=== PATIENT | female | born 1965 | race Caucasian/White ===

== ENCOUNTER 2019-08-30 16:05 | Outpatient (CLI) | payer OTHER, SELFPAY ==
--- NOTE | ~2019-08-30 | MM_ITS ---
EXAMINATION: MM screening [facility] BI w lissette HISTORY: Screening mammogram TECHNIQUE: Craniocaudal and mediolateral oblique 3-D tomosynthesis images were obtained and synthetic 2-D images were generated. CAD analysis was submitted and interpreted. COMPARISON: Comparison to multiple prior studies sequentially, with oldest reviewed study dated 01/25. BREAST PARENCHYMAL COMPOSITION: There are scattered areas of fibroglandular density. FINDINGS: There is no evidence of suspicious mass, calcification, or architectural distortion to sugg est malignancy in either breast. There has been no suspicious interval change. IMPRESSION: 1. No mammographic evidence of malignancy. 2. Recommend routine screening mammography in one year. BI-RADS Category 1: Negative Reviewed, dictated and finalized at location A. LING INSTRUCTOR
== END 2019-08-30 16:06 | disposition home or self-care (01) ==
LOC: ANHIMG 16:13
DX: Z12.31 Encounter for screening mammogram for malignant neoplasm of breast (principal)
CPT/HCPCS: 77063; 77067

== ENCOUNTER 2020-12-11 15:43 | Outpatient (CLI) | payer BC, SELFPAY ==
--- NOTE | ~2020-12-11 | MM_ITS ---
EXAMINATION: MM screening [facility] BI w lissette HISTORY: Screening mammogram TECHNIQUE: Craniocaudal and mediolateral oblique 3-D tomosynthesis images were obtained and synthetic 2-D images were generated. CAD analysis was submitted and interpreted. COMPARISON: August 30, 2019, 12/09/2017, 03/04/2016 bilateral digital screening mammogram examinations BREAST PARENCHYMAL COMPOSITION: There are scattered areas of fibroglandular density. FINDINGS: There is no evidence of suspicious mass, calcification, or architectural distortion to sugg est malignancy in either breast. There has been no suspicious interval change. IMPRESSION: 1. No mammographic evidence of malignancy. 2. Recommend routine screening mammography in one year. BI-RADS Category 1: Negative Reviewed, dictated and finalized at location A.
== END 2020-12-11 15:44 | disposition home or self-care (01) ==
LOC: ANHIMG 15:48
PROVIDERS: Visit Provider Obstetrics & Gynecology
DX: Z12.31 Encounter for screening mammogram for malignant neoplasm of breast (principal)
CPT/HCPCS: 77063; 77067

== ENCOUNTER 2022-01-30 08:20 | Outpatient (CLI) | payer BC, SELFPAY ==
--- NOTE | ~2022-01-30 | MM_ITS ---
EXAMINATION: MM screening [place] BI w lissette HISTORY: Screening mammogram TECHNIQUE: Craniocaudal and mediolateral oblique 3-D tomosynthesis images were obtained and synthetic 2-D images were generated. CAD analysis was submitted and interpreted. COMPARISON: 12/11/2020, 08/30/2019, 12/09/2017 bilateral screening mammogram examinations BREAST PARENCHYMAL COMPOSITION: There are scattered areas of fibroglandular density. FINDINGS: There is no evidence of suspicious mass, calcification, or architectural distortion to sugg est malignancy in either breast. There has been no suspicious interval change. IMPRESSION: 1. No mammographic evidence of malignancy. 2. Recommend routine screening mammography in one year. BI-RADS Category 1: Negative Reviewed, dictated and finalized at location A.
== END 2022-01-30 08:21 | disposition home or self-care (01) ==
LOC: ANHIMG 08:22
PROVIDERS: Visit Provider Obstetrics & Gynecology
DX: Z12.31 Encounter for screening mammogram for malignant neoplasm of breast (principal)
CPT/HCPCS: 77063; 77067

== ENCOUNTER 2023-09-28 15:27 | Outpatient (CLI) | payer BC, SELFPAY ==
--- NOTE | ~2023-09-28 | MM_ITS ---
EXAMINATION: MM screening [place] BI w lissette HISTORY: Screening mammogram TECHNIQUE: Craniocaudal and mediolateral oblique 3-D tomosynthesis images were obtained and synthetic 2-D images were generated. CAD analysis was submitted and interpreted. COMPARISON: 01/30/2022, 12/11/2020, 08/30/2019 bilateral screening mammogram examinations BREAST PARENCHYMAL COMPOSITION: There are scattered areas of fibroglandular density. FINDINGS: There is no evidence of suspicious mass, calcification, or architectural distortion to sugg est malignancy in either breast. There has been no suspicious interval change. IMPRESSION: 1. No mammographic evidence of malignancy. 2. Recommend routine screening mammography in one year. BI-RADS Category 1: Negative Reviewed, dictated and finalized at location A.
== END 2023-09-28 15:28 | disposition home or self-care (01) ==
LOC: ANHIMG 15:29
PROVIDERS: Visit Provider Obstetrics & Gynecology
DX: Z12.31 Encounter for screening mammogram for malignant neoplasm of breast (principal)
CPT/HCPCS: 77063; 77067

== ENCOUNTER 2024-11-11 15:35 | Outpatient (CLI) | payer BC, SELFPAY ==
--- NOTE | ~2024-11-11 | MM_ITS ---
EXAMINATION: MM screening [facility] HISTORY: Screening TECHNIQUE: Craniocaudal and mediolateral oblique 3-D tomosynthesis images were obtained and synthetic 2-D images were generated. CAD analysis was submitted and interpreted. COMPARISON: Comparison to multiple prior studies sequentially, with oldest reviewed study dated 03/04. BREAST PARENCHYMAL COMPOSITION: Not dense: There are scattered areas of fibroglandular density. FINDINGS: There is no evidence of suspicious mass, calcification, or architectural distortion to sugg est malignancy in either breast. There has been no suspicious interval change. IMPRESSION: 1. No mammographic evidence of malignancy. 2. Recommend routine screening mammography in one year. BI-RADS Category 1: Negative Reviewed, dictated and finalized at location A.
--- OUTSIDE RECORDS SUMMARY | 2024-11-11 15:38 | XMS_ITS | Referral Summary ---
Author Organization [facility] Address [address] [place] [address] Care Team Providers Care Welfare Visitor Name Role Phone Lanre Jean MD Primary Care Provider Allergies No known active allergies Medications multivitamin,tx -minerals (VITAMINS AND MINERALS) tablet Take by mouth Active triamcinolone (KENALOG) 0.1 % ointment APPLY TO AFFECTED AREA TWICE A DAY 1 01/13/2019 Active lisinopril (PRINIVIL,ZESTR IL) 10 mg tablet Take 10 mg by mouth daily 3 02/02/2019 Active levothyroxine (SYNTHROID, LEVOTHROID) 75 mcg tablet Take 75 mcg by mouth daily 3 03/10/2019 Active acyclovir (ZOVIRAX) 5 % ointment APPLY TO AFFECTED AREA EVERY 2 HOURS DURING WAKING HOURS FOR 4 DAYS 0 05/05/2019 Active gabapentin (NEURONTIN) 300 mg capsuleIndicati ons:Neuropathic Pain Take 2 capsules (600 mg total) by mouth 3 (three) times a day 540 capsule 11 08/05/2019 Active Active Problems Problem Noted Date Diagnosed Date Neuralgia - Left 01/18/2019 Other chronic pain 01/18/2019 Complex regional pain syndro me type 2 of left upper extremity 12/15/2018 Overview (12/15/2018): Added automatically from request for surgery [id number] Hypothyroid 10/29/2018 Overview (10/29/2018): Last Assessment & Plan: Stable. Will check labs, adjust refill if needed. HLD (hyperlipidemia) 10/29/2018 Overview (10/29/2018): Last Assessment & Plan: Stable. Due for routine labs. Heart healthy diet and routine physical exercise encouraged. Closed fracture of left distal radius 10/29/2018 Overview (10/29/2018): Added automatically from request for surgery Carpal tunnel syndrome of left wrist 10/29/2018 Overview (10/29/2018): Added automatically from request for surgery Diastolic dysfunction 01/05/2018 Overview (01/24/2019): 01/05/2018 Found on ECHO for new murmur, SUMMARY: - Left ventricle: The cavity size was normal. Wall thickness was normal. Global systolic function was normal. The estimated ejection fraction was 70%. Diastolic function assessment consistent with abnormal left ventricular relaxation (grade 1 diastolic dysfunction). - Aortic valve: No significant regurgitation. - Mitral valve: Mild regurgitation. - Left atrium: The atrium was normal in size. - Right ventricle: The cavity size was normal. Systolic function was normal. Last Assessment & Plan: Stable. Seen on echocardiogram last year. Mild. Monitoring for now. Discussed blood pressure monitoring and she is borderline, may need to be on medicines in the future Murmur, cardiac 12/31/2017 Overview (10/29/2018): Last Assessment & Plan: New finding. Will check ECHO, very faint, pt asymptomatic. Elevated blood pressure read ing without diagnosis of hypertension 07/28/2014 Overview (01/24/2019): Last Assessment & Plan: Suboptimal control. Both her parents have hypertension, as well as her younger sister. Blood pressure elevated today and/or previously. Discussed monitoring and recording #'s periodically a few times per week. Discussed normal BP 120/80 for adults and criteria for high blood pressure diagnosis. Pt agrees to follow up if numbers consistently elevated to determine workup and treatment. Essential hypertension 07/28/2014 Overview (02/14/2019): 02/02/2019 Add lisinopril 10mg. Last Assessment & Plan: Uncontrolled. Add lisinopril 10mg. Eczema 07/08/2013 Overview (10/29/2018): Last Assessment & Plan: Stable. Current medication regimen affective, continue same. Social History Tobacco Use Types Packs/Day Years Used Date Smoking Tobacco: Never Smokeless Tobacco: Never Alcohol Use Standard Drinks/Week Comments Yes 0 (1 standard drink = 0.6 oz pur e alcohol) 1-2 drinks/month Comments No Sex and Gender Information Value Date Recorded Sex Assigned at Not on file Legal Sex Female 11:07 AM CDT Gender Identity Not on file Sexual Orientation Not on file Last Filed Vital Signs Vital Sign Reading Time Taken Comments Blood Pressure 100/63 07/05/2019 1:30 PM DIRECTOR OF ACCOUNTS PAYABLE Pulse 71 07/05/2019 1:30 PM DIRECTOR OF ACCOUNTS PAYABLE Temperature 36.6 C (97.8 F) 07/05/2019 1:09 PM DIRECTOR OF ACCOUNTS PAYABLE Respiratory Rate 14 07/05/2019 1:30 PM DIRECTOR OF ACCOUNTS PAYABLE Oxygen Saturation 99% 07/05/2019 1:30 PM DIRECTOR OF ACCOUNTS PAYABLE Inhaled Oxygen Concentration - - Weight 57.7 kg (127 lb 3.3 oz) 07/05/2019 10:59 AM DIRECTOR OF ACCOUNTS PAYABLE Height 157.5 cm (5' 2 ) 07/05/2019 10:59 AM DIRECTOR OF ACCOUNTS PAYABLE Body Mass Index 23.27 07/05/2019 10:59 AM DIRECTOR OF ACCOUNTS PAYABLE Plan of Treatment Not on file Goals Goal Patient Goal Type Associated Problems Recent Progress Patient-Stated? Author CCM Chronic Pain Care Plan Chronic Care Management Improving( 7:39 AM DIRECTOR OF ACCOUNTS PAYABLE) No Hannah Scott RN Note: Problem: Chronic Pain Goals: 1. Minimize further functional decline 2. Maximize quality of life 3. Control pain Strategies: - Activity/exercise program recommendation - Conservative stepwise pain medicine strategy with multi-disciplinary approach - Recommend healthy lifestyle strategies and compensatory methods as needed Medical Devices Implanted Type Area Boilers Inspector Device Identifier Shelf Expiration Date Model / Serial / Lot [employer] A-4750.108 Aptus Trilock [id number] Hole Chamfer Edge Watershed Line - [id number] Implanted:Qty: 1 on 11/04/2018 by Demetrio Hinkle MD at [facility] Left: Radius [employer] A-4750.108 / / Screw 15mm 2.5mm Bone Wrist Radius Cortical Aptus Ti 5/Pk - [id number] Implanted:Qty: 1 on 11/04/2018 by Demetrio Hinkle MD at [facility] Left: Radius [employer] A-5700.15 / / [employer] A-5700.14 Aptus 2.5mm 14mm Cortical Screw Bone - [id number] Implanted:Qty: 1 on 11/04/2018 by Demetrio Hinkle MD at [facility] Left: Radius [employer] A-5700.14 / / Screw 13mm 2.5mm Bone Cortical Aptus 5/Pk - [id number] Implanted:Qty: 1 on 11/04/2018 by Demetrio Hinkle MD at [facility] Left: Radius [employer] A-5700.13 / / [employer] A-5700.20 2.5mm 20mm Cortical Screw Bone - [id number] Implanted:Qty: 2 on 11/04/2018 by Demetrio Hinkle MD at [facility] Left: Radius [employer] A-5700.20 / / [employer] A-5750.18/1 Aptus Trilock 2.5mm 18mm Hexadrive 7 Adaptive Wrist Radius - [id number] Implanted:Qty: 3 on 11/04/2018 by Demetrio Hinkle MD at [facility] [place] Left: Radius [employer] A-5750.18/1 / / [employer] A-5750.16/1 2.5mm 16mm Trilock Hexadrive Wrist Radius Screw Bone - [id number] Implanted:Qty: 3 on 11/04/2018 by Demetrio Hinkle MD at [facility] [place] Left: Radius [employer] A-5750.16/1 / / [employer] A-5700.18 Aptus 2.5mm 18mm Cortical Screw Bone Titanium - [id number] Implanted:Qty: 1 on 11/04/2018 by Demetrio Hinkle MD at [facility] [place] Left: Radius [employer] A-5700.18 / / [employer] A-4750.57 Aptus Trilock 40mmx1.6mm 5 Hole Distal Radius Left Curve Plate - [id number] Implanted:Qty: 1 on 11/04/2018 by Demetrio Hinkle MD at [facility] Left: Radius [employer] A-4750.57 / / Insurance [employer] [facility] PPO Care Teams Welfare Visitor Relationship Specialty [place] [address] [address] PCP - General Family Medicine 11/10/18
--- OUTSIDE RECORDS SUMMARY | 2024-11-11 15:38 | XMS_ITS | Encounter Summary ---
Author Organization [facility] Healthcare Address [address] [place] [address] Care Team Providers Care Pot Annealer Name Role Phone Lanre Jean MD Primary Care Provider Kim Dolan DPT Unavailable [phone] Kinsey Haney OT Unavailable [phone] Encounter Details Date Type Department Care Team (Late st Contact Info) Description 01/31/2019 Telephone [facility] at [address] [place] [address] Yoana Castillo MD PhD [address] [facility] [phone] [place], [place] [id number] Social History Tobacco Use Types Packs/Day Years [...] on file Sexual Orientation Not on file documented as of this encounter Plan of Treatment Not on file documented as of this encounter Goals Goal Patient Goal Type Associated Problems Recent Progress Patient-Stated? Author CCM Chronic Pain Care Plan Chronic Care Management Improving( 7:39 AM REVENUE INSPECTOR) No Hannah Scott, RN Note: Problem: Chronic Pain Goals: 1. Minimize further functional decline 2. Maximize quality of life 3. Control pain Strategies: - Activity/exercise program recommendation - Conservative stepwise pain medicine strategy with multi-disciplinary approach - Recommend healthy lifestyle strategies and compensatory methods as needed documented as of this encounter Visit Diagnoses Not on filedocumented in this encounter Care Teams Pot Annealer Relationship Specialty [place] [address] [place] [address] PCP - General Family Medicine 11/10/18 Kim Dolan DPT [address] [place] [address] Physical Therapist Physical Therapy 03/25/19 09/26/19 [place] [address] [place], [place] [id number] Occupational Therapist Occupational Therapy 03/25/19 documented as of this encounter
--- OUTSIDE RECORDS SUMMARY | 2024-11-11 15:38 | XMS_ITS | Clinical Summary ---
Author Organization [facility] Address [address] [place] [address] Care Team Providers Care Glass Pulverizer Equipment Operator Name Role Phone Unavailable Primary Care Provider Unavailabl e Social History Tobacco Use Types Packs/Day Years Used Date Smoking Tobacco: Never Assessed Comments Unknown Sex and Gender Information Value Date Recorded Sex Assigned at Not on file Legal Sex Female 7:12 PM CDT Gender Identity Not on file Sexual Orientation Not on file Plan of Treatment Health Maintenance Due Date Last Done Comments Cervical Cancer Screening Pa p Smear (Age 30 to 64) Every 3 Years 1967 Colorectal Cancer Screening Colonoscopy (10 Years) 1967 Annual Physical 1970 Hepatitis C 1985 DTaP, Tdap and Td Vaccines ( 1 - Tdap) 1986 Hepatitis B Vaccines (1 of 3 - 19+ 3-dose series) 1986 Cervical Cancer Screening Pa p with HPV Testing (Age 30 to 64) Every 5 Years 1997 Cervical Cancer Screening with HPV 1997 Mammogram Screening 2007 Pneumococcal Vaccine: 50+ Ye ars (1 of 1 - PCV) 2017 Zoster Vaccines (1 of 2) 2017 COVID-19 Vaccine (2023-2 5 season) 2024 Meningococcal B Vaccine Aged Out No l onger eligible based on patient's age to complete this topic Meningococcal Vaccine Aged Out No mikala jeff eligible based on patient's age to complete this topic RSV Immunizations Under 20 Months Aged Out No longer eligible based on patient's age to complete this topic
--- OUTSIDE RECORDS SUMMARY | 2024-11-11 15:38 | XMS_ITS | Clinical Summary ---
Author Organization [facility] Address [address] [place] [address] Care Team Providers Care Home Office Claims Examiner Name Role Phone Lanre Jean MD Primary [...] (12/15/2018): Added automatically from request for surgery [id number] Hypothyroid 10/29/2018 Overview (10/29/2018): Last Assessment & [...] Stable. Current medication regimen affective, continue same. Surgical History Surgery Date Site/Laterality Comments WISDOM TOOTH EXTRACTION 07/06/1983 - 07/05/1984 Bilateral x4 ORIF DISTAL RADIUS FRACTURE 11/03/2018 - 12/03/2018 Left with left CTR, metal implants CARPAL TUNNEL RELEASE Medical History Medical History Date Comments Hypertension borderline, just monitoring Murmur ECHO done 01/06/20 18 Showed mild regurgitation. Pt. denies chest pain or palpitations.Saw Dr. Jean 10/29/2018 requested clearance letter Hyperlipidemia borderline, diet and exercise controlled. Monitoring at this time Motion sickness Hypothyroidism well controlled with meds Eczema Extremity pain Chronic pain disorder Family History Medical History Relation Name Comments Hypertension Brother Thyroid disease Brother Hypertension Father Hypertension Mother Stroke Mother Thyroid disease Mother Hypertension Sister Relation Name Status Comments Brother Father Mother Sister Social History Tobacco Use Types Packs/Day Years [...] on file Sexual Orientation Not on file Obstetrics History Last Filed Vital Signs Vital Sign Reading Time Taken Comments Blood Pressure 100/63 07/05/2019 1:30 PM EXPERIMENTAL MACHINING LAB MANAGER Pulse 71 07/05/2019 1:30 PM EXPERIMENTAL MACHINING LAB MANAGER Temperature 36.6 C (97.8 F) 07/05/2019 1:09 PM EXPERIMENTAL MACHINING LAB MANAGER Respiratory Rate 14 07/05/2019 1:30 PM EXPERIMENTAL MACHINING LAB MANAGER Oxygen Saturation 99% 07/05/2019 1:30 PM EXPERIMENTAL MACHINING LAB MANAGER Inhaled Oxygen Concentration - - Weight 57.7 kg (127 lb 3.3 oz) 07/05/2019 10:59 AM EXPERIMENTAL MACHINING LAB MANAGER Height 157.5 cm (5' 2 ) 07/05/2019 10:59 AM EXPERIMENTAL MACHINING LAB MANAGER Body Mass Index 23.27 07/05/2019 10:59 AM EXPERIMENTAL MACHINING LAB MANAGER Plan of Treatment Not on file Goals Goal Patient Goal Type Associated Problems Recent Progress Patient-Stated? Author CCM Chronic Pain Care Plan Chronic Care Management Improving( 7:39 AM EXPERIMENTAL MACHINING LAB MANAGER) Hannah Miguel RN Note: Problem: Chronic Pain Goals: 1. Minimize further functional decline 2. Maximize quality of life 3. Control pain Strategies: - Activity/exercise program recommendation - Conservative stepwise pain medicine strategy with multi-disciplinary approach - Recommend healthy lifestyle strategies and compensatory methods as needed Medical Devices Implanted Type Area Correctional Probation Officer Device Identifier Shelf Expiration Date Model / Serial / Lot [employer] A-4750.108 Aptus Trilock [id number] Hole Chamfer Edge Watershed Line - [id number] Implanted:Qty: 1 on 11/04/2018 by Demetrio Hinkle MD at [facility] Left: Radius [employer] A-4750.108 / / Screw 15mm 2.5mm Bone Wrist Radius Cortical Aptus Ti 5/Pk - [id number] Implanted:Qty: 1 on 11/04/2018 by Demetrio Hinkle MD at [facility] Left: Radius [employer] A-5700.15 / / [employer] A-5700.14 Aptus 2.5mm 14mm Cortical Screw Bone - [id number] Implanted:Qty: 1 on 11/04/2018 by Demetrio Hinkle MD at [facility] Left: Radius [employer] A-5700.14 / / Screw 13mm 2.5mm Bone Cortical Aptus 5/Pk - [id number] Implanted:Qty: 1 on 11/04/2018 by Demetrio Hinkle MD at [facility] Left: Radius [employer] A-5700.13 / / [employer] A-5700.20 2.5mm 20mm Cortical Screw Bone - [id number] Implanted:Qty: 2 on 11/04/2018 by Demetrio Hinkle MD at [facility] Left: Radius [employer] A-5700.20 / / [employer] A-5750.18/1 Aptus Trilock 2.5mm 18mm Hexadrive 7 Adaptive Wrist Radius - [id number] Implanted:Qty: 3 on 11/04/2018 by Demetrio Hinkle MD at [facility] Left: Radius [employer] A-5750.18/1 / / [employer] A-5750.16/1 2.5mm 16mm Trilock Hexadrive Wrist Radius Screw Bone - [id number] Implanted:Qty: 3 on 11/04/2018 by Demetrio Hinkle MD at [facility] Left: Radius [employer] A-5750.16/1 / / [employer] A-5700.18 Aptus 2.5mm 18mm Cortical Screw Bone Titanium - [id number] Implanted:Qty: 1 on 11/04/2018 by Demetrio Hinkle MD at [facility] [place] Left: Radius [employer] A-5700.18 / / [employer] A-4750.57 Aptus Trilock 40mmx1.6mm 5 Hole Distal Radius Left Curve Plate - [id number] Implanted:Qty: 1 on 11/04/2018 by Demetrio Hinkle MD at [facility] Left: Radius [employer] A-4750.57 / / Insurance [facility] PPO Care Teams Home Office Claims Examiner Relationship Specialty [place] [address] [facility] [place] [address] PCP - General Family Medicine 11/10/18
--- OUTSIDE RECORDS SUMMARY | 2024-11-11 15:38 | XMS_ITS | Clinical Summary ---
Author Organization [facility] Address [address] [place] [address] Care Team Providers Care Supervisor [employer] Name Role Phone Lanre Jean MD Primary Care Provider [phone] Source Comments [facility],non-owned Affiliates and Associated Physician Practices is amultiple site organization consisting of ambulatory clinics and hospital sitesin [place], [place], [place]. This disclosure is being madepursuant to the Care Everywhere program and may not contain all information available regarding this patient. Last updated 18.[facility] Allergies No known active allergies Medications * Be aware that medications may not be up to date on this document. Alwaysverify current medications with the patient. triamcinolone acetonide (KENALOG) 0.1 % ointment Apply to affected area as needed 07/08/2013 Active Multiple Vitamins-Minera ls (MULTIVITAMIN ADULT PO) Active acyclovir (ZOVIRAX) 5 % ointment APPLY TO AFFECTED AREA EVERY 2 HOURS DURING WAKING HOURS FOR 4 DAYS 05/05/2019 Active levothyroxine (SYNTHROID) 75 MCG tablet 1 (one) tablet once daily 3 03/10/2019 Active losartan (COZAAR) 25 MG tablet Take 1 (one) tablet by mouth once daily 05/30/2020 Active Active Problems No known active problems Social History Tobacco Use Types Packs/Day Years Used Date Smoking Tobacco: Never Smokeless Tobacco: Never Tobacco Cessation:Counseling Given: Not Answered Alcohol Use Standard Drinks/Week Comments Yes 0 (1 standard drink = 0.6 oz pur e alcohol) social PHQ-2 Answer Date Recorded Patient Health Questionnaire-2 Score 0 07/20/2024 Comments No Sex and Gender Information Value Date Recorded Sex Assigned at Not on file Legal Sex Female 5:24 AM RESIDENTIAL SOLAR SALES CONSULTANT Gender Identity Not on file Sexual Orientation Not on file Last Filed Vital Signs Vital Sign Reading Time Taken Comments Blood Pressure 120/78 07/20/2024 11:18 AM RESIDENTIAL SOLAR SALES CONSULTANT Pulse - - Temperature 35.6 C (96 F) 10/14/2019 10:40 AM CDT Respiratory Rate - - Oxygen Saturation - - Inhaled Oxygen Concentration - - Weight 62.6 kg (138 lb) 07/20/2024 11:18 AM RESIDENTIAL SOLAR SALES CONSULTANT Height 156.2 cm (5' 1.5 ) 07/20/2024 11:18 AM CS T Body Mass Index 25.65 07/20/2024 11:18 AM RESIDENTIAL SOLAR SALES CONSULTANT Plan of Treatment Health Maintenance Due Date Last Done Comments COLOGUARD (AGES 45-75) - COLON CA SCREENING 1965 COLON MONITORING 1967 COLONOSCOPY - COLON CA SCREENING 1967 CT COLONOGRAPHY - COLON CA SCREENING 1965 Colorectal Cancer Screening 1965 FIT - COLON CA SCREENING 1967 FLEX SIG - COLON CA SCREENING 1967 LIPID TESTING 1967 HIV SCREENING 1982 HEPATITIS C SCREENING 08/09/1985 DTAP/TDAP/TD VACCINES (1 - Tdap) 1986 HEPATITIS B VACCINE (1 of 3 - 19+ 3-dose series) 1986 PNEUMOCOCCAL VACCINE 50+ (1 of 1 - PCV) 2017 ZOSTER VACCINE (1 of 2) 2017 SCREENING FOR DIABETES 05/25/2023 COVID-19 VACCINE ( - season) 2024 06/21/2021, 09/15/2020, 08/18/2020 MAMMOGRAM 09/27/2024 09/28/2023, 01/04, 01/30/2022, Additional history exists PAP with HPV 07/20/2025 07/20/2024, 05/07, 03/21/2022, Additional history exists INFLUENZA VACCINE Completed 05/06/2024, , 05/06/2022, Additional history exists DEPRESSION SCREENING Completed 07/20/2024, 05/25/2023, 12/11/2021 HIB VACCINE Aged Out No longer eligi ble based on patient's age to complete this topic HPV VACCINE Aged Out No longer eligi ble based on patient's age to complete this topic MENINGOCOCCAL (Group B) VACCINE SHARED DECISION-MAKING Aged Out No longer eligible based on patient's age to complete this topic MENINGOCOCCAL GROUPS A/C/Y/W VACCINE Aged Out No longer eligible based on patient's age to complete this topic Procedures Procedure Name Priority Date/Time Associated Diagnosis Comments PAP IG LB+HPV APTIMA Routine 07/20/2024 12:14 PM RESIDENTIAL SOLAR SALES CONSULTANT Well woman exam MAMMO BILAT SCREENING Routine 09/28/2023 Well woman exam from Last 3 Months or Most Recently Relevant to Health Maintenance Results * PAP IG LB+HPV APTIMA (07/20/2024 12:14 PM RESIDENTIAL SOLAR SALES CONSULTANT) Diagnosis Comment [facility] ACCOUNT BILL Comment: NEGATIVE FOR INTRAEPITHELIAL LESION OR MALIGNANCY. CELLULAR CHANGES ASSOCIATED WITH ATROPHY ARE PRESENT. THIS SPECIMEN WAS RESCREENED PART OF OUR HEALTH CARE RECRUITER PROGRAM. Specimen Adequacy Comment [facility] ACCOUNT BILL Comment: Satisfactory for evaluation. Endocervical and/or squamous metaplastic cells (endocervical component) are present. Clinician Provided ICD10 Comment [facility] ACCOUNT BILL Comment:Z01.419 Performed by Comment [facility] ACCOUNT BILL Comment:Mirlande Alvarez, Cytotec hnologist (ASCP) QC Reviewed by Comment [facility] ACCOUNT BILL Comment:Damian Currie ytotechnologist (ASCP) Comment . [facility] ACCOUNT BILL Note Comment [facility] ACCOUNT BILL Comment: The Pap smear is a screening test designed to aid in the detection of premalignant and malignant conditions of the uterine cervix. It is not a diagnostic procedure and should not be used as the sole means of detecting cervical cancer. Both false-positive and false-negative reports do occur. IGLBP CPT Code Automation Comment [facility] ACCOUNT BILL Comment: This liquid based ThinPrep(R) pap test was screened with the use of an image guided system. Human papillomavirus Aptima Negative Negative [facility] ACCOUNT BILL Comment: This nucleic acid amplification test detects fourteen high-risk HPV types (16,18,31,33,35,39,45,51,52,56,58,59,66,68) without differentiation. Pathology/Cytolog y PART OF UTERINE CERVIX / Unknown 07/20/2024 12:14 PM RESIDENTIAL SOLAR SALES CONSULTANT 07/20/2024 Comment:Cervix Release to pa jax Narrative [facility] ACCOUNT BILL - 07/25/2024 3:07 PM RESIDENTIAL SOLAR SALES CONSULTANT Performed at: - [facility] [address] [id number] Business Solution Analyst: Alanna Painting MD, Phone: [phone] Performed at: - [facility] [address] [id number] Business Solution Analyst: Alanna Painting MD, Phone: [phone] Specimen Comment: [id number] Specimen Comment: No. of containers..01 ThinPrep Vial us Demetrio Garcia MD LAB - PATHOLOGY/CYTOLOGY OR DERABLES Final Result Performing Organization Address City/State/[facility] Co de Phone Number [facility] ACCOUNT BILL [address] [place] [address] * MAMMO BILAT SCREENING (09/28/2023) Anatomical Region Laterality Modality Breast Bilateral Mammography 09/28/2023 us Demetrio Garcia MD MAMMO ORDERABLES Final Resu lt from Last 3 Months or Most Recently Relevant to Health Maintenance Insurance ANTH Care Teams Supervisor [employer] Relationship Specialty Start Date End Date Lanre Jean MD PCP - General Family Medicine 02/13/17
--- OUTSIDE RECORDS SUMMARY | 2024-11-11 15:38 | XMS_ITS | Clinical Summary ---
Author Organization [facility] Address [address] [place] [address] Care Team Providers Care Bone Process Operator Name Role Phone Lanre Jean MD Primary Care Provider Allergies No known active allergies Medications MULTIVITAMIN ORAL Take by mouth. Active betamethasone valerate (VALISONE) 0.1 % CreamIndications: Eczema, unspecified type Apply to affected area 2 times daily. 45 Gram 1 4 Active losartan (COZAAR) 25 mg tabletIndications :Essential hypertension Take 1 Tablet (25 mg) by mouth daily. 90 Tablet 3 4 Active levothyroxine 88 mcg tabletIndications :Hypothyroidism due to acquired atrophy of thyroid TAKE 1 TABLET BY MOUTH EVERY DAY 100 Tablet 3 5 Active Active Problems Problem Noted Date Diagnosed Date Tubular adenoma of colon 10/08/2020 Assessment & Plan (06/01/2024 2:56 PM STAVE GRADER): Stable UTD on screenings. Assessment & Plan (05/27/2023 2:07 PM STAVE GRADER): Stable. Due for screening colonoscopy in October. Serrated adenoma of colon 10/08/2020 Complex regional pain syndro me type 2 of left upper extremity 12/15/2018 Overview (01/13/2019): Added automatically from request for surgery [id number] Diastolic dysfunction 01/05/2018 Overview (01/05/2018): 01/05/2018 Found on ECHO for new murmur, [...] size was normal. Systolic function was normal. Assessment & Plan (06/01/2024 2:55 PM STAVE GRADER): Asymptomatic, will monitor. Assessment & Plan (01/13/2019 2:44 PM CDT): Stable. Seen on echocardiogram last year. Mild. Monitoring for now. Discussed blood pressure monitoring and she is borderline, may need to be on medicines in the future Mitral valve insufficiency 01/05/2018 Assessment & Plan (06/01/2024 2:56 PM STAVE GRADER): Asymptomatic, will monitor. Essential hypertension 07/28/2014 Overview (05/30/2020): 02/02/2019 Add lisinopril 10mg. 05/30/2020 cough, changing to losartan 25mg QD Assessment & Plan (06/01/2024 2:56 PM STAVE GRADER): Suboptimal control. Heart healthy diet and routine physical exercise encouraged. Current medication regimen affective, continue same. Assessment & Plan (05/27/2023 2:08 PM STAVE GRADER): Suboptimal control. Heart healthy diet and routine physical exercise encouraged. Current medication regimen affective, continue same. Assessment & Plan (05/30/2020 3:53 PM STAVE GRADER): Stable. Cough w/ lisinopril, changing to losartan 25mg QD. Encouraged heart health diet, exercise &/or see AVS. labs. Assessment & Plan (02/23/2019 2:35 PM CDT): Improving. Continue lisinopril 10mg QD, monitor Encouraged heart health diet and exercise. Assessment & Plan (02/02/2019 3:25 PM CDT): Uncontrolled. Add lisinopril 10mg. Assessment & Plan (01/13/2019 2:44 PM CDT): Suboptimal control. Both her parents have hypertension, as well as her younger sister. Blood pressure elevated today and/or previously. Discussed monitoring and recording #'s periodically a few times per week. Discussed normal BP 120/80 for adults and criteria for high blood pressure diagnosis. Pt agrees to follow up if numbers consistently elevated to determine workup and treatment. Assessment & Plan (12/31/2017 6:36 PM CDT): Stable. Continue to monitor at home, low salt diet, routine physical exercise. Eczema 07/08/2013 Assessment & Plan (06/01/2024 2:56 PM STAVE GRADER): Suboptimal control, will change from triamcinolone cream to betamethasone Assessment & Plan (05/27/2023 2:09 PM STAVE GRADER): Stable. Refilled triamcinolone cream Assessment & Plan (01/13/2019 2:45 PM CDT): Suboptimal control. Refilled her triamcinolone cream-she said it was less effective, but it was last refilled in 2013. She was wondering about other medicines so trial of Eucrisa, not sure about coverage. Assessment & Plan (12/31/2017 6:35 PM CDT): Stable. Current medication regimen affective, continue same. Hypothyroid Assessment & Plan (06/01/2024 2:56 PM STAVE GRADER): Stable. Due for routine labs, will adjust medications accordingly and notify pt of changes. Assessment & Plan (05/27/2023 2:08 PM STAVE GRADER): Stable. Due for routine labs, will adjust medications accordingly and notify pt of changes. Assessment & Plan (12/31/2017 6:35 PM CDT): Stable. Will check labs, adjust refill if needed. HLD (hyperlipidemia) Assessment & Plan (06/01/2024 2:56 PM STAVE GRADER): Stable. Due for routine labs. Heart healthy diet and routine physical exercise encouraged. Assessment & Plan (05/27/2023 2:08 PM STAVE GRADER): Stable. Due for routine labs. Heart healthy diet and routine physical exercise encouraged. Assessment & Plan (12/31/2017 6:35 PM CDT): Stable. Due for routine labs. Heart healthy diet and routine physical exercise encouraged. Resolved Problems Problem Noted Date Diagnosed Date Resolved Date Closed fracture of left distal radius 10/29/2018 05/26/2022 Overview (01/13/2019): Added automatically from request for surgery Murmur, cardiac 12/31/2017 05/26/2022 Assessment & Plan (12/31/2017 6:36 PM CDT): New finding. Will check ECHO, very faint, pt asymptomatic. Left shoulder pain; fall 2013; limited ROM 07/28/2014 01/26/2015 Overview (07/28/2014): 07/28/14 - see PT, if not improved see Ortho Elevated blood pressure read ing without diagnosis of hypertension 01/05/2013 01/18/2014 Encounters Date Type Department Care Team Description 11/08/2024 External Device Data STL ABSTRACTION Provider, Abstract 09/21/2024 External Device Data STL ABSTRACTION Provider, Abstract 09/13/2024 External Device Data STL ABSTRACTION Provider, Abstract 09/13/2024 External Device Data STL ABSTRACTION Provider, Abstract 09/10/2024 External Device Data STL ABSTRACTION Provider, Abstract 09/09/2024 External Device Data STL ABSTRACTION Provider, Abstract 09/06/2024 External Device Data STL ABSTRACTION Provider, Abstract 08/23/2024 External Device Data STL ABSTRACTION Provider, Abstract from Last 3 Months Immunizations Immunization Administration Dates Next Due (ADACEL/BOOSTRIX)(10 YR UP) TDAP VACCINE, 0.5ML, IM 05/27/2023,01/05/2013 (SHINGRIX)(50 YRS UP) ZOSTER VACCINE RECOMBINANT, 0.5 ML, IM 08/25/2020,06/15/2020 (SPIKEVAX) (12 YRS UP PRIMAR Y SERIES) COVID-19 VACCINE - MRNA-1273(PF) 100 MCG/0.5 ML IM SUSP 09/15/2020,08/18/2020 INFLUENZA VACCINE QUADRIVALE NT 3 YR UP PF IM 05/16/2019 INFLUENZA VACCINE QUADRIVALE NT 6 MOS UP CELL DERIVED PF IM 03/30/2020 INFLUENZA VACCINE TRIVALENT SPLIT VIRUS, (6 MOS UP), 0.5ML (PF), IM 05/06/2024 Influenza Seasonal Unspecifi ed Formulation IM 04/22/2023,05/06/2022,05/03/2021,2013,04/05/2013,08/06/2012 Family History Medical History Relation Name Comments Healthy Daughter 16 yr High Cholesterol Father Dad Hypertension Father Dad Unknown Maternal Grandfather Colon Cancer Maternal Grandmother Gma Unknown Maternal Grandmother Gma High Cholesterol Mother Mom Hypertension Mother Mom Thyroid Disease Mother Mom Heart Disease Paternal Grandfather Gpa Healthy Paternal Grandmother Hypertension Sister Laya Thyroid Disease Sister Laya Healthy Son 19 yr Relation Name Status Comments Daughter 16 yr Alive Father Dad Alive Maternal Grandfather Maternal Grandmother Gma Mother Mom Alive Paternal Grandfather Gpa Paternal Grandmother Alive Sister Laya Alive Son 19 yr Alive Social History Tobacco Use Types Packs/Day Years Used Date Smoking Tobacco: Never Smokeless Tobacco: Never Tobacco Cessation:Counseling Given: No Alcohol Use Standard Drinks/Week Comments Yes 0 (1 standard drink = 0.6 oz pure alcohol) Very little 1-2 drinks per month Feeling Safe Answer Date Recorded Are you in a relationship wi th someone who hurts you emotionally and/or physically? No 10/06/2023 Comments No Sex and Gender Information Value Date Recorded Sex Assigned at Female 05/31/2024 4:41 PM STAVE GRADER Legal Sex Female 9:24 AM CDT Gender Identity Female 05/31/2024 4:41 PM STAVE GRADER Sexual Orientation Not on file Occupation Industry Job Start Date Job End Date teacher Not on file Not on file Not on file Not on file Not on file Not on file Not on file Last Filed Vital Signs Vital Sign Reading Time Taken Comments Blood Pressure 120/80 06/01/2024 2:20 PM STAVE GRADER Pulse 94 06/01/2024 2:20 PM STAVE GRADER Temperature 36.5 C (97.7 F) 06/01/2024 2:20 PM STAVE GRADER Respiratory Rate 18 06/01/2024 2:20 PM STAVE GRADER Oxygen Saturation 100% 06/01/2024 2:20 PM STAVE GRADER Inhaled Oxygen Concentration - - Weight 63 kg (138 lb 12.8 oz) 06/01/2024 2:20 PM STAVE GRADER Height 157.5 cm (5' 2 ) 06/01/2024 2:20 PM STAVE GRADER Body Mass Index 25.39 06/01/2024 2:20 PM STAVE GRADER Plan of Treatment Upcoming Encounters Date Type Department Care Team (Late st Contact Info) Description 05/31/2025 3:00 PM STAVE GRADER Office Visit [facility] [place] [address] [address] Angie Engle, [facility] [address] [place] [address] Health Maintenance Due Date Last Done Comments HEPATITIS B VACCINES (1 of 3 - 19+ 3-dose series) 1986 HPV/Cotest (21-29) 1988 HPV/Cotest (30-65) 1997 FIT-DNA Q 3 years 2012 FIT/FOBT Q 1 year 2012 Flex Sig/CT Colonography Q 5 years 2012 CERVICAL CANCER SCREENING 04/16/2023 PAP SMEAR 04/16/2023 04/16/2020, 08/0 07/2017, 01/17/2015, Additional history exists COVID-19 Vaccine ( - 2023-2 5 season) 2024 09/15/2020, 08/18/2020 Preventative Visit- Commercial 07/06/2024 1 08/01/2023, 05/27/2023, 05/25/2023, Additional history exists BREAST CANCER SCREENING 09/27/2024 09/28/19 24, 01/30/2022, 08/30/2019, Additional history exists COLORECTAL SCREENING 10/05/2026 10/06/2023, 10/06/2023, 10/04/2020, Additional history exists Colorectal Cancer Screening 10/05/2026 Pre-Diabetes and Diabetes Screening 07/25/2027 07/25/2024 DTAP/TDAP/TD VACCINES (3 - T d or Tdap) 05/27/2033 05/27/2023, 01/05/2013 ZOSTER VACCINE Completed 08/25/2020, 06/15/2020 INFLUENZA VACCINE Completed 05/06/2024, , 05/06/2022, Additional history exists Procedures Procedure Name Priority Date/Time Associated Diagnosis Comments HEMOGLOBIN A1C Routine 07/25/2024 7:03 AM STAVE GRADER Screening for diabetes mellitus COLONOSCOPY REPORT 10/06/2023 7: 30 AM CDT MAMMO SCREENING BILAT Routine 01/30/2022 12:14 PM CDT from Last 3 Months or Most Recently Relevant to Health Maintenance Results * HEMOGLOBIN A1C (07/25/2024 7:03 AM STAVE GRADER) HEMOGLOBIN A1C 5.1 <5.7 % of total Hgb [facility] Comment: For the purpose of screening for the presence of diabetes: <5.7% Consistent with the absence of diabetes 5.7-6.4% Consistent with increased risk for diabetes (prediabetes) > or =6.5% Consistent with diabetes This assay result is consistent with a decreased risk of diabetes. Currently, no consensus exists regarding use of hemoglobin A1c for diagnosis of diabetes in children. According to [place] Diabetes Association (ADA) guidelines, hemoglobin A1c <7.0% represents optimal control in non- diabetic patients. Different metrics may apply to specific patient populations. Standards of Medical Care in Diabetes(ADA). ESTIMATED AVERAGE GLUCOSE (MG/DL) 100 mg/dL Maura Arnold ESTIMATED AVERAGE GLUCOSE (MMOL/L) 5.5 mmol/L [employer] Natanael Arnold Comment: FASTING:YES FASTING: YES Test [facility] at[facility] [address] [place] [address] [facility] Blood 07/25/2024 7:03 AM STAVE GRADER 07/25/2024 7:04 AM STAVE GRADER Angie Engle BARREL RAISER HELPER CHEMISTRY ORDERABLES Final Result [facility] [phone] [place] [address] * COLONOSCOPY REPORT (10/06/2023 7:30 AM CDT) Narrative Procedure Note Zhang Lucas MD - 10/06/2023 7:30 AM CDT Jaylene [facility] Patient Name: Martina Contreras Procedure Date: 10/06/2023 Date of : 1965 Age: 58 Attending MD: Zhang Lucas MD, Procedure: Colonoscopy Indications: Surveillance: Personal history of adenomatous polyps on last colonoscopy > 3 years ago, Last colonoscopy: October 2020 Providers: Zhang Lucsa MD Referring MD: Lanre Jean MD Complications: No immediate complications. Procedure: Informed consent was obtained for the procedure, including moderate sedation after risks were discussed. Based on the pre-procedure assessment, including review of the patient's medical history, medications, allergies, and review of systems, the patient was deemed to be an appropriate candidate for sedation. A timeout was performed. Continuous ECG monitoring, pulse oximetry, blood pressure monitoring, and direct observation were performed. The Colonoscope was introduced through the anus and advanced to the terminal ileum. The colonoscopy was performed without difficulty. The patient tolerated the procedure well. The quality of the bowel preparation was good. Findings: The digital rectal exam was normal. The terminal ileum appeared normal. A few diverticula were found in the left colon. A 10 mm polyp was found in the splenic flexure. The polyp was sessile. The polyp was removed with a hot snare. Resection and retrieval were complete. The retroflexed view of the distal rectum and anal verge was normal and showed no anal or rectal abnormalities. Estimated Blood Loss: Estimated blood loss was minimal. Impression: - The examined portion of the ileum was normal. - Diverticulosis in the left colon. - One 10 mm polyp at the splenic flexure, removed with a hot snare. Resected and retrieved. - The distal rectum and anal verge are normal on retroflexion view. Recommendation: - Discharge patient to home. - Continue present medications. - Await pathology results. - If you are active on [employer], you will receive the biopsy results as a message via that account. If you do not have [employer] account, you will receive a call from my office regarding your results. If you do not hear from us about your results within a week, please contact our office at [phone] . Zhang Lucas MD 10/06/2023 7:29:57 AM This report has been signed electronically. Number of Addenda: [phone] [place] [address] Zhang Lucas MD GI PROCEDURE ORDERABLES Final Result * MAMMO SCREENING BILAT (01/30/2022 12:14 PM CDT) Anatomical Region Laterality Modality Breast Bilateral Mammography us Abstract Provider MAMMO ORDERABLES Final Result from Last 3 Months or Most Recently Relevant to Health Maintenance Insurance BCBS BLUE ACCESS/TRUE BLUE PPO Advance Directives For more information, please contact: [phone] * Full Code (Latest Code Status on File) Date Activated Date Inactivated Comments 10/06/2023 6:12 AM 10/06/2023 9:55 AM * Full Code Date Activated Date Inactivated Comments 10/04/2020 7:10 AM 10/04/2020 10:50 AM Care Teams Bone Process Operator Relationship Specialty Start Date End Date Lanre Jean MD PCP - General Family Practice 01/05/13
--- OUTSIDE RECORDS SUMMARY | 2024-11-11 15:38 | XMS_ITS | Encounter Summary ---
Author Organization [facility] Address [address] [place] [address] Care Team Providers Care County Bailiff Name Role Phone Lanre Jean MD Primary Care Provider [phone] Encounter Details Date Type Department Care Team (Late Contact Info) Description 07/26/2024 Results Follow-Up [facility] Primary [facility] [place] [address] [place] [address] [facility] [address] [facility] [place] [address] COMPREHENSIVE METABOLIC PANEL, LIPID RFLX, TSH REFLEXIVE, Additional followed-up results: 2 Social History Tobacco Use Types Packs/Day Years [...] Sex Assigned at Female 05/31/2024 4:41 PM CHILD MONITOR Legal Sex Female 9:24 AM CDT Gender Identity Female 05/31/2024 4:41 PM CHILD MONITOR Sexual Orientation Not on file Occupation Industry Job Start Date Job End Date teacher Not on file Not on file Not on file Not on file Not on file Not on file Not on file documented as of this encounter Plan of Treatment Upcoming Encounters Date Type Department Care Team (Late Contact Info) Description 05/31/2025 3:00 PM CHILD MONITOR Office Visit [facility] Primary Care [place] [address] [place] [place] [address] Angie Engle, [facility] [address] [place] [address] documented as of this encounter Visit Diagnoses Not on filedocumented in this encounter Care Teams County Bailiff Relationship Specialty Start Date End Date Lanre Jean MD PCP - General Family Practice 01/05/13 documented as of this encounter
== END 2024-11-11 15:36 | disposition home or self-care (01) ==
LOC: ANHIMG 15:36
PROVIDERS: Visit Provider Obstetrics & Gynecology
DX: Z12.31 Encounter for screening mammogram for malignant neoplasm of breast (principal)
CPT/HCPCS: 77063; 77067